=== PATIENT | female | born 1995 | race Caucasian/White ===

== ENCOUNTER 2019-02-25 02:41 | Emergency (ER) | payer OTHER ==
[~2019-02-25] VITALS: Ht 160 cm; Wt 91.5 kg
[2019-02-25 02:45] VITALS: BP 133/88
[2019-02-25 03:39] LABS: RAPID INFLUENZA A Negative (Negative); RAPID INFLUENZA B Negative (Negative)
[2019-02-25] MEDS ORDERED: BICILLIN-LA 1,200,000 UNITS/2 ML IM ONE (04:00)
== END 2019-02-25 04:43 | disposition home or self-care (01) ==
LOC: ED 03:53
DX: J02.0 Streptococcal pharyngitis (principal); M79.10 Myalgia, unspecified site
CPT/HCPCS: 71046; 87400; 87880; 96372; 99284; J0561